=== PATIENT | female | born 1985 | race Caucasian/White ===

== ENCOUNTER 2018-01-10 19:38 | Emergency (ER) | payer BC, OTHER ==
[~2018-01-10] VITALS: Ht 172.7 cm; Wt 76.2 kg
[2018-01-10 19:38] VITALS: BP_SYST 143
[2018-01-10 20:45] LABS: BARBITURATE, URINE NEGATIVE (NEG <=200); BENZODIAZEPINE, URINE NEGATIVE (NEG <=150); CANNABINOID, URINE NEGATIVE (NEG <=50); COCAINE, URINE NEGATIVE (NEG <=150); METHAMPHETAMINES SCREEN,URINE NEGATIVE (NEG <=500); OPIATE, URINE NEGATIVE (NEG <=100); PHENCYCLIDINE SCREEN,URINE NEGATIVE (NEG <=25); UR TRICYCLIC ANTIDEPRESSANTS NEGATIVE (NEG <=300); URINE AMPHETAMINE NEGATIVE (NEG <=500); URINE METHADONE NEGATIVE (NEG <=200); URINE OXYCODONE SCREEN NEGATIVE (NEG <=100); URINE PROPOXYPHENE SCREEN NEGATIVE (NEG <=300)
[2018-01-10 20:55] VITALS: BP_SYST 133
== END 2018-01-10 20:55 | disposition home or self-care (01) ==
LOC: SED 19:38
DX: T40.5X1A Poisoning by cocaine, accidental (unintentional), initial encounter (principal); R03.0 Elevated blood-pressure reading, without diagnosis of hypertension; R20.0 Anesthesia of skin; H53.149 Visual discomfort, unspecified; Y92.89 Other specified places as the place of occurrence of the external cause
CPT/HCPCS: 80307; 99283